=== PATIENT | male | born 1945 | race Caucasian/White ===

== ENCOUNTER 2017-04-05 19:50 | Observation (INO) | payer MEDICARE, OTHER ==
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
[2017-04-05] MEDS ORDERED: Acetaminophen/HYDROcodone 325-5 MG Tab PO PRN (21:24)
--- NOTE | 2017-04-06 07:47 | PCM.PN ---
- General Info Date of Service: 04/06/17 (Resting quietly, easily arousable. States he slept very well. Nurses report no problems throught the night. CBC stable. Family notified of patients condition. Plan to discharge patient this morning in good condition.) Functional Status: Reports: pain controlled - Review of Systems General: Reports: No Symptoms HEENT: Reports: no symptoms Pulmonary: Reports: no symptoms Cardiovascular: Reports: No Symptoms Musculoskeletal: Reports: shoulder pain Skin: Reports: bruising Neurological: Reports: No Symptoms Psychiatric: Reports: no symptoms - Patient Data Vitals - most recent: Last Vital Signs Temp 98.5 F 04/06/17 04:00 Pulse 88 04/06/17 04:00 Resp 18 04/06/17 04:00 BP 157/81 H 04/06/17 04:00 Pulse Ox 94 L 04/06/17 04:00 Weight - most recent: 215 lb 2.738 oz Lab Results last 24 hrs: Laboratory Results - last 24 hr 04/06/17 04/06/17 Range/Units 06:55 06:55 WBC 10.9 H (5.0-10.0) 10^3/uL RBC 4.32 L (4.50-6.00) 10^6/uL Hgb 14.0 (14.0-18.0) g/dL Hct 41.2 (40.0-54.0) % MCV 95.4 H (82.0-94.0) fL MCH 32.4 H (27.0-32.0) pg MCHC 34.0 (33.0-38.0) g/dL RDW Coeff of Yasmine 13.4 (11.0-15.0) % Plt Count 157 (150-400) 10^3/uL Neut % (Auto) 60.5 (35-85) % Lymph % (Auto) 23.8 (10-55) % Cochran % (Auto) 12.7 (0-16) % Eos % (Auto) 2.8 (0-5) % Baso % (Auto) 0.2 (0-3) % Neut # (Auto) 6.58 (1.80-7.00) 10^3/uL Lymph # (Auto) 2.59 (1.00-4.80) 10^3/uL Cochran # (Auto) 1.38 H (0.00-0.80) 10^3/uL Eos # (Auto) 0.30 (0.00-0.45) 10^3/uL Baso # (Auto) 0.02 10^3/uL Troponin I < 0.017 (0.00-0.06) ng/mL Med Orders - Current: Current Medications Hydrocodone Bitart/Acetaminophen (Deputy 325-5 Mg) 1 tab PO Q3H PRN PRN Reason: Pain - Problem List Review Problem List Initiated/Reviewed/Updated: Yes - My Orders Last 24 Hours: My Active Orders 04/05/17 21:24 Acetaminophen/HYDROcodone [Deputy 325-5 MG] 1 tab PO Q3H PRN 04/05/17 21:51 Activity as Tolerated [RC] .PRN 04/05/17 21:52 Blood Glucose Check, Bedside [RC] 0730,202904/06/17 Breakfast Consistent Carbohydrate Diet [DIET] 04/07/17 07:00 CBC WITH AUTO DIFF [HEME] DAILY
[2017-04-06 11:48] VITALS: BP 113/75
== END 2017-04-06 08:28 | disposition home or self-care (01) ==
LOC: CC.ED 19:50 → CC.MS 21:19
PROVIDERS: ADMIT Nurse Practitioner Family; ATTEND Nurse Practitioner Family
DX: S20.219A Contusion of unspecified front wall of thorax, initial encounter (principal); Z79.82 Long term (current) use of aspirin; Z79.899 Other long term (current) drug therapy; V49.9XXA Car occupant (driver) (passenger) injured in unspecified traffic accident, initial encounter; Y92.488 Other paved roadways as the place of occurrence of the external cause
CPT/HCPCS: 36415; 71020; 72040; 80053; 82962; 84484; 85025; 99217; 99220; 99285; G0378